=== PATIENT | male | born 1965 | race Caucasian/White ===

== ENCOUNTER → 2018-10-25 | Outpatient (CLI) | payer BC ==
[~2018-10-25] MED LIST: LOSARTAN POTASS25 MG; METFORMIN HCL500 MG PO; METFORMIN HCL850 MG PO; PANTOPRAZOLE SO40 MG PO
--- NOTE | 2018-10-25 15:29 | Diagnostic Imaging Report ---
Left foot, 3 views. History: Heel pain for several months. Findings: The soft tissues are normal. Bone mineralization is normal. There is no evidence of fracture or dislocation. There are no lytic or sclerotic lesions. The joint spaces are within normal limits. A small plantar calcaneal spur is present. IMPRESSION: Small calcaneal spur. Otherwise unremarkable exam. Signed by: Hany Rucker on 10/25/2018 3:26 PM
== END ==
LOC: RAD 14:48
PROVIDERS: ATTEND Family Medicine
DX: M77.32 Calcaneal spur, left foot (principal)